=== PATIENT | female | born 1975 | race Caucasian/White ===

== ENCOUNTER → 2016-09-01 | Outpatient (CLI) | payer OTHER ==
[~2016-09-01] MED LIST: FLEXERIL10 M1 PO; KEFLEX500 M1 PO; NO MEDICATIONS; PERCOCET 5/321 UDTAB PO; TYLENOL325 M1 PO
--- NOTE | ~2016-09-01 | US98 ---
[facility] A Service of [facility] RADIOLOGY TEXT RESULTS PATIENT: ROC MOISE LOCATION: [facility] : 73 UNIT #: [id number] AGE: [address]: LINNETTE Zuleta APRN SEX: F ORDER DR: [id number] [facility] [address] [place], [place] [address] [id number] O MR#: [id number] Acc #: [id number] NAME: ROC MOISE : 1975 SEX: F STUDY DATE/TIME: 09/01/2016 12:32 UNIT: CGUS ROOM: STUDY DESCRIPTION: US Pelvic Non-OB Complete Ordering Physician: Linnette Sutton Aprn MEDICAL IMAGING REPORT This report is preliminary unless electronic signature is present EXAM Pelvic ultrasound COMPARISON None. TECHNIQUE 41-year-old female with pelvic and peroneal pain as well as left lower quadrant pain with menses in the last 6 months. FINDINGS Uterus measures 8.7 cm x 4.9 x 5.8 cm with endometrial stripe thickness of 14 mm. There is no free pelvic fluid. There is a large cyst within the right ovary measuring 3 cm x 3.7 cm x 3 cm. This does not have internal color flow. This may have a few thin internal septations. Right ovary measures 4.3 cm x 3.9 cm x approximately 3.7 cm. There are multiple simple-appearing cysts within the left ovary. The left ovary measures approximately 5.3 cm x 2.3 cm x 3.4 cm. Color flow is demonstrated in the left ovary. There is a nearly isoechoic, oval structure in the left ovary measuring 2.8 cm x 2.6 cm in longitudinal plane x approximately 2.8 cm in transverse plane. This does not have internal color flow and may represent a hemorrhagic cyst. There are no associated calcifications. Color and Doppler flow present in both ovaries. IMPRESSION 1. Normal sonographic evaluation of the uterus. 2. Negative for ovarian torsion. 3. Bilateral ovarian cysts. There is a single, nearly isoechoic, avascular structure in the left ovary measuring approximately 2.8 cm x 2.8 cm x 2.6 cm, which may reflect a hemorrhagic cyst. 6-week follow-up pelvic ultrasound is recommended to document resolution of this finding. If it persists at that time, then MRI of the pelvis with and without IV contrast would be recommended for definitive STS. [facility] A Service of [facility] RADIOLOGY TEXT RESULTS PATIENT: ROC MOISE LOCATION: [facility] : 73 UNIT #: [id number] AGE: [address]: LINNETTE Zuleta, [employer] OPERATOR SEX: F ORDER DR: characterization and to exclude the possibility of ovarian neoplasm. Dictated by... Jordon Rowe M.D. THIS IS AN ELECTRONICALLY VERIFIED REPORT Jordon Rowe M.D. at 09/07/2016 12:04 PM BLM/pcl TD: 09/02/2016 21:09 JOB #: [id number] MEDICAL IMAGING REPORT Page 1 of 1 COPY
== END | disposition home or self-care (01) ==
LOC: CGUS 08-26 13:30
DX: R10.2 Pelvic and perineal pain (principal); N83.202 Unspecified ovarian cyst, left side; N83.201 Unspecified ovarian cyst, right side
CPT/HCPCS: 76830; 76856